=== PATIENT | female | born 1985 | race Caucasian/White ===

== ENCOUNTER 2017-05-25 15:20 | Emergency (ER) | payer MEDICAID ==
[~2017-05-25] VITALS: Ht 162.6 cm; Wt 71.0 kg
[2017-05-25 19:16] VITALS: BP 130/85
== END 2017-05-25 19:17 | disposition home or self-care (01) ==
LOC: ER 16:46
DX: J32.9 Chronic sinusitis, unspecified (principal); M32.9 Systemic lupus erythematosus, unspecified
CPT/HCPCS: 99283

== ENCOUNTER 2017-06-03 15:36 | Emergency (ER) | payer MEDICAID ==
[~2017-06-03] VITALS: Ht 162.6 cm; Wt 75.0 kg
[2017-06-03 18:41] LABS: BASOPHILS % 0.7 % (0.0-2.0); EOSINOPHILS % 0.7 % (0.0-5.0); HEMATOCRIT. 42.8 % (36.0-48.0); HEMOGLOBIN. 14.4 g/dL (12.0-16.0); LYMPHOCYTES % 16.3 % (20.0-50.0); MEAN CORPUSCULAR HEMOGLOBIN 30.2 pg (28.0-32.0); MEAN CORPUSCULAR VOLUME 89.7 fL (81.0-99.0); MEAN PLATELET VOLUME 8.6 fl (7.4-10.4); MONOCYTES % 7.4 % (2.0-8.0); NEUTROPHILS % 74.9 % (40.0-76.0); PLATELET 190 x1000/uL (130-400); RED BLOOD CELL COUNT 4.77 mill/uL (4.2-5.4); RED CELL DISTRIBUTION WIDTH 13.4 % (11.6-14.6)
[2017-06-03 18:43] LABS: CHLORIDE 103 mEq/L (98-107)
[2017-06-03 18:50] LABS: HCG SCREEN NEGATIVE
[2017-06-03] MEDS ORDERED: IBUPROFEN 600MG TABLET PO ONE (19:00)
[2017-06-03] MEDS ORDERED: CEFTRIAXONE 1 G PREMIX 50 ML IV ONE (20:30)
[2017-06-03 22:30] VITALS: BP 120/76
== END 2017-06-03 22:49 | disposition home or self-care (01) ==
LOC: ER 15:50
DX: J32.9 Chronic sinusitis, unspecified (principal); M32.9 Systemic lupus erythematosus, unspecified
CPT/HCPCS: 36415; 70486; 71045; 80048; 84703; 85025; 96365; 99285; J0696; Z7610